=== PATIENT | female | born 1975 | race Caucasian/White ===

== ENCOUNTER 2022-09-25 10:36 | Outpatient (CLI) | payer OTHER, SELFPAY ==
--- NOTE | 2022-09-25 10:45 | MM_ITS ---
Final Report Patient: ROMAN BROWN Facility:?[facility] Patient ID:[id number] Study:?XRay Breast Bilateral 3D SCREENING W/cad-09/25/2022 11:23:29 AM Ordering Physician:Óscar Julien Final Report: BILATERAL DIGITAL DIAGNOSTIC MAMMOGRAM USING TOMOSYNTHESIS AND COMPUTER-AIDED DETECTION RIGHT BREAST ULTRASOUND CLINICAL HISTORY: RIGHT breast lump. COMPARISON: 09/28/2020. TECHNIQUE: Digital BILATERAL mammogram in four projections. Tomosynthesis and CAD utilized. Real-time ultrasound imaging of RIGHT breast with imaging documentation. BREAST COMPOSITION: The breasts are extremely dense, which limits the sensitivity of mammography. FINDINGS: 3D CC/MLO mammogram submitted bilaterally. Circumscribed mass is present in the inferior RIGHT breast corresponding to the area of concern. No architectural distortion. Post biopsy changes LEFT breast with benign calcifications. Targeted RIGHT breast ultrasound performed 6 o`clock 1 cm from the nipple. In this location there is a circumscribed anechoic simple cyst with increased through-transmission measuring 1.6 x 1.5 x 1.9 cm. IMPRESSION: Simple cyst RIGHT breast 6 o`clock 1 cm from the nipple measuring 1.9 cm. No evidence of malignancy. RECOMMENDATIONS: Annual BILATERAL screening mammography. Results and recommendations discussed with the patient. BI-RADS Category 2: Benign A lay language report of this examination will be provided to the patient. Dictated by Ambrocio Burnham MD @ 09/25/2022 1:43:17 PM [email or web address]/Dictated by: Ambrocio Burnham MD @ 09/25/2022 1:43:00 PM (Electronic Signature)
--- NOTE | 2022-09-25 11:15 | US_ITS ---
Final Report Patient: ROMAN BROWN Facility:?[facility] Patient ID:?[id number] :?[id number] Study:?US Breast Right -09/25/2022 11:29:58 AM Ordering Physician:Óscar Julien Final Report: PLEASE SEE DIGITAL DIAGNOSTIC BILATERAL MAMMOGRAM PERFORMED SAME DAY CRL:[email or web address] [email or web address]/Dictated by: Ambrocio Burnham MD @ 09/25/2022 1:43:00 PM (Electronic Signature)
== END 2022-09-25 10:37 | disposition home or self-care (01) ==
LOC: MAMMO 10:39
PROVIDERS: PCP Student in an Organized Health Care Education/Training Program; Visit Provider Student in an Organized Health Care Education/Training Program
DX: N63.10 Unspecified lump in the right breast, unspecified quadrant (principal)
CPT/HCPCS: 76642; 77066; G0279